=== PATIENT | male | born 1930 | race Caucasian/White ===

== ENCOUNTER 2017-02-20 10:59 | Inpatient (IN) | payer OTHER, MEDICARE ==
[~2017-02-20] VITALS: Ht 172.7 cm; Wt 84.7 kg
[~2017-02-20 10:59] MED LIST: ACETAMINOPHEN500 MG PO; DAILY MULTIVIT1 EAC4 PO; FINASTERIDE5 MG PO; HYDROCHLOROTHIA25 MG PO; LO-DOSE ASPIRIN81 M1 PO; LOPRESSOR50 MG PO; PRAVASTATIN SOD80 MG PO; TYLENOL EXTRA500 MG PO
[2017-02-20 11:39] LABS: EOSINOPHIL (%) 0.1 % (0-5); HEMATOCRIT 43.4 % (38.0-50.0); IMMATURE GRANULOCYTE (%) 0.3 % (0.0-0.7); LYMPHOCYTE COUNT 0.9 K/uL (1.0-2.8); MCH 30.5 PG (29.0-34.0); MCHC 33.4 G/DL (30.0-36.0); MCV 91.2 FL (86-99); MEAN PLAT.VOLUME 11.2 uM^3 (9.0-12.4); MONOCYTE (%) 6.1 % (3-12); MONOCYTE COUNT 0.7 K/uL (0-0.8); NEUTROPHIL (%) 85.4 % (45-76); PLATELET COUNT 159 K/uL (156-360); RBC DIS.WIDTH-CV 13.4 % (11.8-14.6); RBC DIS.WIDTH-SD 45.6 % (39-53); RED BLOOD COUNT 4.76 M/uL (4.00-5.50); WHITE BLOOD COUNT 11.7 K/uL (4.1-10.2)
[2017-02-20 11:49] LABS: CHLORIDE 103 mEq/L (99-109); POTASSIUM 3.5 mEq/L (3.7-5.4); SODIUM 141 mEq/L (136-147)
[2017-02-20 11:51] LABS: GLUCOSE 128 mg/dL (70-99)
[2017-02-20 11:52] LABS: ANION GAP 14 MEQ/L (2-14)
[2017-02-20 11:54] LABS: GFR ESTIMATE (CALCULATED) 51 mL/min/
[2017-02-20 11:55] LABS: UREA NITROGEN (BUN) 22 mg/dL (9-23)
[2017-02-20 12:02] LABS: TROP-I INTERPRETATION NEGATIVE; TROPONIN-I 0.02 ng/mL (0.0-0.30)
[2017-02-20 13:41] LABS: ADD MIUA? YES; BILIRUBIN NEGATIVE; BLOOD LARGE; COLOR DK YELLOW ((YELLOW)); GLUCOSE (STRIP) NEGATIVE; KETONES NEGATIVE; LEUKOCYTES NEGATIVE; NITRITE NEGATIVE; PROTEIN (STRIP) 100; UROBILINOGEN 0.2 MG/DL (0.2-1.0)
[2017-02-20 13:44] LABS: BACTERIA NONE SEEN /HPF; EPITHELIAL CELLS RARE /HPF; MUCUS 1+ /LPF; RED BLOOD CELLS 0-5 /HPF (0-5); WHITE BLOOD CELLS 0-5 /HPF (0-5)
[2017-02-20] MEDS ORDERED: PRED FORTE100 DROP/5 RIGHT EYE (14:46)
[2017-02-20 16:12] LABS: CREATINE KINASE 1387 IU/L (1-294)
[2017-02-20 16:49] VITALS: BP 129/74
[2017-02-20 19:37] LABS: TROP-I INTERPRETATION INDETERMINATE; TROPONIN-I 0.39 ng/mL (0.0-0.30)
[2017-02-20 19:43] VITALS: BP 107/62
[2017-02-20 23:29] VITALS: BP 109/63
[2017-02-21 01:09] LABS: TROP-I INTERPRETATION POSITIVE; TROPONIN-I 0.62 ng/mL (0.0-0.30)
[2017-02-21 03:46] VITALS: BP 123/68
[2017-02-21 05:28] LABS: TROP-I INTERPRETATION INDETERMINATE
[2017-02-21 05:51] LABS: ANION GAP 11 MEQ/L (2-14); CHLORIDE 105 MEQ/L (99-109); GFR ESTIMATE (CALCULATED) > 59 mL/min/; GLUCOSE 115 mg/dL (70-99); POTASSIUM 3.9 MEQ/L (3.7-5.4); SAMPLE HEMOLYSIS CHECK 0; SAMPLE ICTERIC CHECK 0; SAMPLE LIPEMIA CHECK 0; SODIUM 141 MEQ/L (136-147); UREA NITROGEN (BUN) 21 mg/dL (9-23)
[2017-02-21 05:53] LABS: CREATINE KINASE 4853 IU/L (1-294)
[2017-02-21 07:44] VITALS: BP 117/70
[2017-02-21 10:54] VITALS: BP 135/62
[2017-02-21 12:09] LABS: TROP-I INTERPRETATION INDETERMINATE; TROPONIN-I 0.38 ng/mL (0.0-0.30)
[2017-02-21 15:36] VITALS: BP 154/81
[2017-02-21 20:00] VITALS: BP 135/78
[2017-02-21 23:49] VITALS: BP 141/81
[2017-02-22] VITALS (8 sets, daily range): BP systolic 94–150; BP diastolic 53–71
[2017-02-22 06:22] LABS: MCH 29.9 PG (29.0-34.0); MCHC 32.3 G/DL (30.0-36.0); MCV 92.4 FL (86-99); MEAN PLAT.VOLUME 11.1 uM^3 (9.0-12.4); PLATELET COUNT 150 K/uL (156-360); RBC DIS.WIDTH-CV 13.5 % (11.8-14.6); RED BLOOD COUNT 4.22 M/uL (4.00-5.50)
[2017-02-22 07:36] LABS: CK-MB 14.1 ng/mL (0.0-4.9)
[2017-02-22 07:37] LABS: ALKALINE PHOSPHATASE 42 IU/L (3-129); ANION GAP 11 MEQ/L (2-14); CHLORIDE 109 MEQ/L (99-109); CREATINE KINASE 2812 IU/L (1-294); GFR ESTIMATE (CALCULATED) > 59 mL/min/; GLUCOSE 111 mg/dL (70-99); POTASSIUM 3.9 MEQ/L (3.7-5.4); SAMPLE HEMOLYSIS CHECK 0; SAMPLE ICTERIC CHECK 0; SAMPLE LIPEMIA CHECK 0; SODIUM 144 MEQ/L (136-147); TOTAL BILIRUBIN 0.7 MG/DL (0.0-1.0); TOTAL CK 2812 IU/L (1-294); UREA NITROGEN (BUN) 18 mg/dL (9-23)
[2017-02-23 00:38] VITALS: BP 133/78
[2017-02-23 04:37] VITALS: BP 167/92
[2017-02-23 06:49] LABS: ANION GAP 10 MEQ/L (2-14); CHLORIDE 106 MEQ/L (99-109); CREATINE KINASE 1931 IU/L (1-294); GFR ESTIMATE (CALCULATED) > 59 mL/min/; GLUCOSE 98 mg/dL (70-99); POTASSIUM 3.7 MEQ/L (3.7-5.4); SAMPLE HEMOLYSIS CHECK 0; SAMPLE ICTERIC CHECK 0; SAMPLE LIPEMIA CHECK 0; SODIUM 143 MEQ/L (136-147); UREA NITROGEN (BUN) 18 mg/dL (9-23)
[2017-02-23 08:00] VITALS: BP 146/80
[2017-02-23 11:34] VITALS: BP 121/70
[2017-02-23 16:17] VITALS: BP 132/78
[2017-02-23 21:00] VITALS: BP 170/90
[2017-02-24 00:34] VITALS: BP 186/94
[2017-02-24 03:45] VITALS: BP 160/65
[2017-02-24 08:45] VITALS: BP 117/76
[2017-02-24] MEDS ORDERED: LOPRESSOR25 MG PO (10:33)
[2017-02-24 12:06] VITALS: BP 132/99
== END 2017-02-24 13:19 | DRG 558 ==
LOC: EME 10:59 → EDOF 14:57 → 5WEST 14:57 → EDOF 14:57 → ENRESERV 15:05 → 5WEST 16:31 → ENPENDDIS 02-24 → 5WEST 02-24 13:19
PROVIDERS: Emergency Medicine; Internal Medicine; Nurse Practitioner Adult Health; Physician Assistant; Student in an Organized Health Care Education/Training Program
DX: M62.82 Rhabdomyolysis (principal); N17.9 Acute kidney failure, unspecified; E87.6 Hypokalemia; I10 Essential (primary) hypertension; E78.5 Hyperlipidemia, unspecified; G31.9 Degenerative disease of nervous system, unspecified; H91.90 Unspecified hearing loss, unspecified ear; I08.1 Rheumatic disorders of both mitral and tricuspid valves; R05 Cough; R19.7 Diarrhea, unspecified; R55 Syncope and collapse; Z79.82 Long term (current) use of aspirin; Z95.3 Presence of xenogenic heart valve
CPT/HCPCS: 70450; 71010; 71020; 80048; 80053; 81003; 82550; 82550 91; 82553; 84484; 85025; 85027; 93005; 93306; 93880; 95819; 99281; 99285; G0378; J1644; J1650; J7030; J7040